=== PATIENT | female | born 1985 | race Caucasian/White ===

== ENCOUNTER → 2017-09-20 16:24 | Outpatient (CLI) | payer OTHER, SELFPAY ==
--- NOTE | 2017-09-20 16:33 | RAD_ITS ---
STUDY: X-RAY - ABDOMEN/PELVIS REASON FOR EXAM: Female, 31 years old. Constipation vomiting. TECHNIQUE: AP supine and upright views of the abdomen and pelvis. COMPARISON: None. FINDINGS: Normal visualized lung bases. There is an unremarkable bowel gas pattern. There is moderate to marked fecal retention. There is no demonstrated free abdominal air. The visualized liver, spleen and kidneys are grossly normal in size and morphology. Normal soft tissue structures. Normal visualized osseous structures. RAD/Abd Inc Decub and/or Erect IMPRESSION: Moderate to marked fecal retention, but no evidence for obstruction. Electronically Signed: Calderon De La Garza MD at 23:59 EDT , Service support ,
== END ==
PROVIDERS: Family Provider Internal Medicine; PCP Internal Medicine; Visit Provider Internal Medicine
DX: R10.2 Pelvic and perineal pain (principal)
CPT/HCPCS: 74019

== ENCOUNTER → 2017-12-13 15:52 | Outpatient (CLI) | payer OTHER, SELFPAY | PROVIDERS: Family Provider Internal Medicine; PCP Internal Medicine; Visit Provider Obstetrics & Gynecology | DX: N80.9 Endometriosis, unspecified (principal) | CPT/HCPCS: 76830; 76856 ==

== ENCOUNTER → 2018-01-24 15:56 | Outpatient (CLI) | payer OTHER, SELFPAY ==
--- NOTE | 2018-01-24 15:58 | US_ITS ---
STUDY: ULTRASOUND TRANSVAGINAL CLINICAL: Female, 32 years old. Ovarian cyst TECHNIQUE: Transvaginal COMPARISON: None. FINDINGS: Normal uterine size measuring 8.8 x 4.7 x 3.6 cm in maximal craniocaudal dimension. There are no myometrial masses. Normal endometrial thickness measuring 9 mm and appears hyperechoic. There are no endometrial masses, and there is no fluid in the endometrial cavity. Normal uterine cervix. Normal right ovary, measuring 5.3 x 4.3 x 3.9 cm. There is a 4.7 cm cyst. Normal left ovary, measuring 4.5 x 3.6 x 3.4 cm. There is a 3.5 cm cyst. There is mild free fluid in the pelvis. US/Pelvic (Non ) IMPRESSION: Bilateral ovarian cysts. Mild pelvic free fluid. Electronically Signed: Abrahan Chau DO at 23:56 EDT Tel [phone], Service support ,
--- NOTE | 2018-01-24 15:58 | US_ITS ---
STUDY: ULTRASOUND TRANSVAGINAL CLINICAL: Female, 32 years old. Ovarian cyst TECHNIQUE: Transvaginal COMPARISON: None. FINDINGS: Normal uterine size measuring 8.8 x 4.7 x 3.6 cm in maximal craniocaudal dimension. There are no myometrial masses. Normal endometrial thickness measuring 9 mm and appears hyperechoic. There are no endometrial masses, and there is no fluid in the endometrial cavity. Normal uterine cervix. Normal right ovary, measuring 5.3 x 4.3 x 3.9 cm. There is a 4.7 cm cyst. Normal left ovary, measuring 4.5 x 3.6 x 3.4 cm. There is a 3.5 cm cyst. There is mild free fluid in the pelvis. US/Transvaginal Non- IMPRESSION: Bilateral ovarian cysts. Mild pelvic free fluid. Electronically Signed: Abrahan Chau DO at 23:56 EDT Tel [phone], Service support ,
== END ==
PROVIDERS: Family Provider Internal Medicine; PCP Internal Medicine; Visit Provider Obstetrics & Gynecology
DX: N80.9 Endometriosis, unspecified (principal); R10.2 Pelvic and perineal pain
CPT/HCPCS: 76830; 76856; 93976

== ENCOUNTER → 2018-11-23 | Outpatient (CLI) | payer OTHER, SELFPAY ==
--- NOTE | 2018-11-23 10:10 | US_ITS ---
STUDY: ABDOMINAL ULTRASOUND - RIGHT UPPER QUADRANT REASON FOR VISIT: Female, 32 years old. Epigastric pain TECHNIQUE: Ultrasound evaluation of the right upper quadrant was performed with real-time and static mireles-scale imaging. TECHNICAL QUALITY: Adequate. COMPARISON: None. FINDINGS: Liver: The liver measures 14.5 cm. There is normal echogenicity of the liver. The bile ducts are within normal limits. There is hepatic color flow. The direction of portal flow is hepatopetal. There is no demonstrated mass lesion. Gallbladder: Normal distended gallbladder. The gallbladder wall measures 2.7 mm. There is a negative sonographic Sweet's sign. There is no pericholecystic fluid. There are no gallstones. Common Bile Duct (C.B.D.): The common bile duct measures 3.5 mm. Pancreas: Normal size of the head, body and tail of the pancreas. There is normal echogenicity of the pancreas. There is no demonstrated pancreatic mass or cyst. Right Kidney: Normal size of the right kidney. The right kidney measures 11.2 x 5.3 x 4.1 cm. Normal renal cortex. The right cortex measures 1.1 cm. There is no demonstrated renal mass or cyst. There is no right hydronephrosis. US/Abdomen Limited IMPRESSION: Normal right upper quadrant ultrasound examination. Electronically Signed: Bakari Davies MD at 13:39 EDT , Service support ,
== END | disposition home or self-care (01) ==
DX: R10.13 Epigastric pain (principal)
CPT/HCPCS: 76705

== ENCOUNTER → 2019-03-29 07:42 | Outpatient (CLI) | payer OTHER, SELFPAY ==
[2019-03-13 12:30] VITALS: BMI 26.7
--- NOTE | 2019-03-29 07:43 | ECHOD_ITS ---
Reason For Study: Arrhythmia Procedure This was a 2D Doppler, Color Flow transthoracic echocardiogram. Exam performed in department. Left Ventricle Normal LV size. The estimated ejection fraction is 65 %. Left ventricular systolic function is normal. No regional wall motion abnormalities noted. Right Ventricle Normal RV size. Normal systolic function. Atria Normal left atrium. Normal right atrium. Mitral Valve Normal mitral valve. Tricuspid Valve Normal tricuspid valve. Mild (1+) tricuspid valve insufficiency. Pulmonary artery systolic pressure is 20 mmHg. Aortic Valve Normal aortic valve. Trisinus/trileaflet aortic valve. Pulmonic Valve Normal pulmonic valve. Great Vessels Normal aortic root. The pulmonary artery is normal size. Normal inferior vena cava. Pericardium/Pleural No pericardial effusion. MMode/2D Measurements & Calculations LVIDd: 4.7 cm IVSd: 0.84 cm LA dimension: 3.6 cm LVIDs: 2.8 cm LVPWd: 1.1 cm FS: 41.3 % LAV(MOD-bp): 52.2 ml LA A4 area: 17.0 cm2 RA A4 area: 15.2 cm2 LAV(MOD-bp) Indexed: 27.8 ml/m2 LAV(MOD-sp2): 44.3 ml LAV(MOD-sp4): 50.6 ml Time Measurements MV dec time: 0.20 sec Doppler Measurements & Calculations MV E max thomas: 93.3 cm/sec Lat Peak E' Thomas: 14.1 cm/sec Med Peak E' Thomas: 11.1 cm/sec MV A max thomas: 70.1 cm/sec E/E' lat: 6.6 E/E' med: 8.4 MV E/A: 1.3 MV V2 max: 93.8 cm/sec MV P1/2t max thomas: 94.5 cm/sec Ao V2 max: 127.8 cm/sec MV max P.5 mmHg MV P1/2t: 79.9 msec Ao max P.5 mmHg MV V2 mean: 52.4 cm/sec MV dec slope: 346.4 cm/sec2 MV mean P.3 mmHg MVA(P1/2t): 2.8 cm2 MV V2 VTI: 24.9 cm LV V1 max: 115.8 cm/sec PA V2 max: 99.2 cm/sec TR max thomas: 208.0 cm/sec LV V1 max P.4 mmHg TR max P.3 mmHg Interpretation Summary Normal LV size. The estimated ejection fraction is 65 %. Left ventricular systolic function is normal. Structurally normal valves. Ordering Physician: Mickey Han Referring Physician: Mickey Han Performed By: Alexander Cantu RCS
== END ==
PROVIDERS: Referring Provider Internal Medicine Cardiovascular Disease; Visit Provider Internal Medicine Cardiovascular Disease
DX: R00.2 Palpitations (principal)
CPT/HCPCS: 93306

== ENCOUNTER → 2020-01-15 | Outpatient (CLI) | payer OTHER, SELFPAY ==
[2020-01-15 08:04] VITALS: BMI 26.7
[2020-01-20 20:47] LABS: HPV APTIMA, High Risk Negative (Negative)
== END | disposition home or self-care (01) ==
LOC: LABSPEC 15:26
PROVIDERS: Visit Provider Obstetrics & Gynecology
DX: Z12.4 Encounter for screening for malignant neoplasm of cervix (principal)
CPT/HCPCS: 87624; 88175; G0145

== ENCOUNTER → 2020-02-11 | Outpatient (CLI) | payer OTHER, SELFPAY ==
[2020-01-15 08:04] VITALS: BMI 26.7
--- NOTE | 2020-02-11 15:31 | US_ITS ---
STUDY: ULTRASOUND OF THE FEMALE PELVIS - COMPLETE REASON FOR EXAM: Female, 34 years old. HX ENDOMETRIOSIS F/U BILAT OVARIES LMP: 01/21/2020 TECHNIQUE: Transabdominal and Transvaginal TECHNICAL QUALITY: Adequate. COMPARISON: January 24, 2018 ultrasound pelvis FINDINGS: The uterus is anteverted and is in a midline position. The uterus measures 9.2 x 5.2 x 3.6 cm. Normal uterine cervix. The endometrium measures 1.3 mm in thickness, and is hyperechoic. There is no demonstrated endometrial mass. There is no demonstrated myometrial mass. I.U.D. - The patient does not have an I.U.D. The right ovary is visualized. The right ovary measures 8.2 x 6.6 x 4.9 cm. Right ovarian cyst measuring 5.7 x 5.6 x 4.5 cm. There are a few internal echoes. It appears to be mildly enlargement in comparison to prior study. There is a second adjacent cyst measuring 2.0 x 1.2 cm. This is not seen on the prior study. There is vascularity in a tic septum or parenchymal tissue between this cyst in the larger cyst. There is no visualized right adnexal mass or complex lesion. There is normal arterial and normal venous vascularity. The left ovary is visualized. The left ovary measures 6.4 x 4.5 x 3.3 cm. Is a left ovarian cyst measuring 3.8 x 3.6 x 3.0 cm. There is no visualized left adnexal mass or complex lesion. There is normal arterial and normal venous vascularity. There is no fluid in the cul-de-sac. The pre void volume of the bladder was 113.86 ml. Polycystic ovary disease: No. US/Pelvic (Non ) IMPRESSION: Large right ovarian cyst atypical by size. There are a few internal echoes. There is no evidence of significant internal vascularity. However, There is a second adjacent cyst measuring 2.0 x 1.2 cm. There is adjacent vascularity.No evidence of internal vascularity. This likely represents intervening ovarian parenchyma rather than a cystic septum. However given the size of this ovarian cyst slightly enlarged since prior study short-term interval follow-up is warranted. Left ovarian cyst. No evidence of significant endometrial thickening. Electronically Signed: Yadira Hu MD at 3:25 EDT Tel , Service support ,
--- NOTE | 2020-02-11 15:31 | US_ITS ---
STUDY: ULTRASOUND OF THE FEMALE PELVIS - COMPLETE REASON FOR EXAM: Female, 34 years old. HX ENDOMETRIOSIS F/U BILAT OVARIES LMP: 01/21/2020 TECHNIQUE: Transabdominal and Transvaginal TECHNICAL QUALITY: Adequate. COMPARISON: January 24, 2018 ultrasound pelvis FINDINGS: The uterus is anteverted and is in a midline position. The uterus measures 9.2 x 5.2 x 3.6 cm. Normal uterine cervix. The endometrium measures 1.3 mm in thickness, and is hyperechoic. There is no demonstrated endometrial mass. There is no demonstrated myometrial mass. I.U.D. - The patient does not have an I.U.D. The right ovary is visualized. The right ovary measures 8.2 x 6.6 x 4.9 cm. Right ovarian cyst measuring 5.7 x 5.6 x 4.5 cm. There are a few internal echoes. It appears to be mildly enlargement in comparison to prior study. There is a second adjacent cyst measuring 2.0 x 1.2 cm. This is not seen on the prior study. There is vascularity in a tic septum or parenchymal tissue between this cyst in the larger cyst. There is no visualized right adnexal mass or complex lesion. There is normal arterial and normal venous vascularity. The left ovary is visualized. The left ovary measures 6.4 x 4.5 x 3.3 cm. Is a left ovarian cyst measuring 3.8 x 3.6 x 3.0 cm. There is no visualized left adnexal mass or complex lesion. There is normal arterial and normal venous vascularity. There is no fluid in the cul-de-sac. The pre void volume of the bladder was 113.86 ml. Polycystic ovary disease: No. US/Transvaginal Non- IMPRESSION: Large right ovarian cyst atypical by size. There are a few internal echoes. There is no evidence of significant internal vascularity. However, There is a second adjacent cyst measuring 2.0 x 1.2 cm. There is adjacent vascularity.No evidence of internal vascularity. This likely represents intervening ovarian parenchyma rather than a cystic septum. However given the size of this ovarian cyst slightly enlarged since prior study short-term interval follow-up is warranted. Left ovarian cyst. No evidence of significant endometrial thickening. Electronically Signed: Yadira Hu MD at 3:25 EDT Tel , Service support ,
== END | disposition home or self-care (01) ==
LOC: US 15:31
PROVIDERS: PCP Internal Medicine; Referring Provider Obstetrics & Gynecology; Visit Provider Obstetrics & Gynecology
DX: N80.9 Endometriosis, unspecified (principal)
CPT/HCPCS: 76830; 76856

== ENCOUNTER → 2021-10-27 | Outpatient (CLI) | payer OTHER, SELFPAY ==
--- NOTE | 2021-10-27 06:56 | CT_ITS ---
STUDY: CT ABDOMEN AND PELVIS WITH CONTRAST REASON FOR EXAM: Female, 35 years old. Epigastric and right flank pain. RADIATION DOSAGE (If Supplied By Facility): CTDIvol = ( 16.95 ) mGy, DLP = ( 1053.75 ) mGycm TECHNIQUE: Transaxial images were obtained from the dome of the diaphragm to the symphysis pubis with oral contrast. Oral and amp; IV Readi-CAT and amp; 100mL Isovue-300 was administered. Sagittal and coronal images were reconstructed. Individualized dose optimization techniques were used for this CT. COMPARISON: None. FINDINGS: The visualized lung bases are unremarkable. The visualized portions of the heart are within normal limits. Normal liver. Normal gallbladder and extrahepatic biliary system. Normal spleen. Normal pancreas. Normal bilateral adrenal glands. Normal right kidney. Normal left kidney. Normal visualized stomach. Normal small intestine. Normal colon. The appendix is visualized and appears normal. Normal abdominal aorta. Normal inferior vena cava. Normal retroperitoneum. Normal urinary bladder. There is a 4.3 cm x 4 cm cyst in the left ovary. This also evidence of a 5.4 cm x 5 cm right ovarian cyst. Normal abdominal wall. Normal osseous structures. CT/Abdomen/Pelvis WITH Contrast IMPRESSION: Bilateral ovarian cysts. Electronically Signed: Kelby Ingram MD at 12:56 EDT ,
== END | disposition home or self-care (01) ==
PROVIDERS: PCP Internal Medicine; Visit Provider Obstetrics & Gynecology
DX: R10.9 Unspecified abdominal pain (principal); R10.2 Pelvic and perineal pain; N83.299 Other ovarian cyst, unspecified side; N80.9 Endometriosis, unspecified
CPT/HCPCS: 74177; Q9967

== ENCOUNTER 2022-01-04 08:54 | Day surgery (SDC) | payer OTHER, SELFPAY ==
[2022-01-04] VITALS (12 sets, daily range): BP systolic 108–144; BP diastolic 60–86; PULSE 46–94; RESP 14–18; TEMP 36.3–36.6; O2SAT 97–100; BMI 29.7
[2022-01-04] MEDS: Lactated Ringers 1,000 ML 15 ML IV (08:50)
[2022-01-04 09:27] LABS: Internal QC Validated? YES +Cl - CLEAR BKGD; Pregnancy, Urine Negative Negative
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
--- NOTE | 2022-01-04 10:27 | PCM.HP.BLA ---
History and Physical Intake Vital Signs ? 12/06/2212:43 12/06/2212:43 Height 5 ft 7 in 5 ft 7 in Weight: 192 lb 2 oz ? BMI 30.0 ? BP 100/66 ? Intake Visit Reasons:?Pre-op- ovarian cystectomies [place] [employer] Required: No Is patient in pain?: No Allergies doxycycline Allergy (Mild, Verified 12/06/21 13:42) nausea, vomitingPenicillins Allergy (Mild, Verified 12/06/21 13:42) Rashbananas Allergy (Mild, Uncoded 02/18/20 15:35) swelling and hives Medications ergocalciferol (vitamin D2) 1,250 mcg (50,000 unit) capsule 50,000 unit PO QWEEK 12/04/17 [History Confirmed 12/06/21] lorazepam 1 mg tablet (Ativan) 1 mg PO QHS PRN 12/04/17 [History Confirmed 12/06/21] ibuprofen 800 mg tablet 800 mg PO TID PRN pain #60 tabs 07/09/19 [Rx Confirmed 12/06/21] naproxen 500 mg tablet 500 mg PO BID-TID PRN pain #30 tabs 10/21/21 [Rx Confirmed 12/06/21] rimegepant 75 mg disintegrating tablet (Nurtec ODT) 75 mg PO ONCE PRN 10/21/21 [History Confirmed 12/06/21] Post menopausal: No Patient : No : [facility] Medical History?(Updated 12/06/21 @ 14:[address] Ana Maria Pickett MD) Anxiety Bilateral ovarian cysts Cyclic vomiting syndrome Endometriosis IBS (irritable bowel syndrome) Migraines Recurrent candidiasis of vagina Type 2 diabetes mellitus Vitamin D deficiency Surgical History? H/O colonoscopy H/O endoscopy S/P laparoscopic procedure S/P tonsillectomy and adenoidectomy Status post hysteroscopy Family History? Father Heart disease Diabetes COPD (chronic obstructive pulmonary disease)Grandmother Breast cancer Ovarian cancer CVA (cerebral vascular accident)Grandfather Diabetes CVA (cerebral vascular accident) Kidney disease Social History? alcohol intake:? never substance use type:? does not use caffeine:? Yes (occasionally) what type of physical activity do you participate in:? walking seatbelt use:? sometimes do you feel safe at home:? Yes additional social history:? 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 left cyst 4 cm right 6 cm. Pregancy History ? ? ? 0 ? Elective abortions ? Hx Para ? Spontaneous abortions ? Hx # Term Pregnancies ? Ectopic pregnancies ? Hx # Pregnancies ? Multiple births ? # of living children ? ROS Const Constitutional: Denies fatigue, fever(s), headache(s), increased appetite, poor appetite, weight gain or weight loss Cardio Card: Denies chest pain Resp Resp: Denies cough or dyspnea GI GI: Reports as per HPI, abdominal pain, nausea and vomiting; Denies constipation : Reports as per HPI; Denies difficulty voiding, dysuria, nipple discharge, urinary frequency, urinary incontinence, urinary hesitancy, urinary urgency, vaginal discharge, vaginal dryness, vaginal odor or vaginal pruritus Skin Skin/Breast: Denies change in hair, breast mass, breast pain, breast skin changes or nipple discharge Exam Const General: cooperative, healthy appearing, comfortable, no acute distress and well developed Nutritional Appearance: average body habitus Orientation: alert [facility] Head: normal to inspection and normocephalic Neck Neck: normal visual inspection and trachea midline Thyroid: thyroid normal Resp Effort & Inspection: normal respiratory effort GI Inspection: normal to inspection and non-distended Palpation: soft and no hepatosplenomegaly Skin General: no rashes or lesions noted Coding Level of Care Code No Charge Diagnoses Complex ovarian cyst? N83.299 Assessment and Plan Assessment and Plan (1) Complex ovarian cyst: ?Status:?Acute ?Comment: laparoscopic bilateral ovarian cystectomies, chromotubation. Plan After discussing the patient's diagnosis and treatment plan options, patient wishes to proceed with surgical management.? I have discussed with the patient the risks, benefits, and alternatives of the procedure which include but are not limited to risks of anesthesia, bleeding, infection, possible damage to bowel, bladder, or surrounding vasculature which could lead to additional surgery to evaluate any complications.? Patient agrees to procedure and wishes to proceed.? ACOG/uptodate references given for additional information regarding procedure.? UPDATE- I have seen the patient and performed any clinically relevant updates to the history and physical exam. Ana Maria Pickett MD
--- NOTE | 2022-01-04 10:35 | OP.PCM_ITS ---
Problems Associated Problem List Diagnoses (1) Endometriosis: (2) Complex ovarian cyst: Report of Operation Date of Procedure: 01/04/22 Pre-Operative Diagnosis: see problem list Post-Operative Diagnosis: enodmetriosis stage III disease, bilateral complex tubal masses. Surgery/Procedure Performed:: laparoscopic bilateral partial salpingectomies to removal bilateral complex tubal masses, chromotubation, adhesiolysis, ablation of endometriosis Description of Surgical Findings:: bilateral complete tubal blockage with complex paratubal masses bilaterally, endometriosis stage III disease, para ovarian adhesions, endometriosis implants, left sigmoid to pelvic side wall adhesions nl appearing gall bladder and upper abdomen Type of Anesthesia: General and Local Specimen's removed: ovarian cyst wall Drains: none Estimated Blood Loss (mL): 50 Fluids Replaced: crystalloid Description of Procedure: Patient was taken in the operating room and was placed under general anesthesia was prepped and draped in normal sterile fashion in the dorsal lithotomy position. Bladder was drained of clear urine and SCDs were on preoperatively. Uterus was sounded and a uterine manipulator was placed after dilating. Attention was then paid to the abdominal portion of the procedure and the umbilicus was elevated with towel clamps and injected with Marcaine and after a 12 mm incision was made and the Veress needle was entered into the abdomen confirmed to be intra-abdominal with a low opening pressure of less than 5 mmHg. Abdomen was insufflated with CO2 gas and a 12 mm optical trocar was placed under direct visualization. A 5 mm port was placed in the right and left lower quadrant ports under direct visualization. see Operative findings above for details. Chromotubation was performed by pushing on the fluid into the uterus through the uterine manipulator and no dye was spilt bilaterally. Sigmoid colon adhesions were taken down with the LigaSure device and bluntly. The fallopian tubes bilaterally, in order dissected out and the ovary was dissected off for pelvic sidewall and the fallopian tubes and with the bilateral complex cystic masses in the fallopian tubes which were noted to be completely nonfunctional and blocked of using the LigaSure device. Part of the fallopian tubes that were noted to be the most most portions of them were left intact bilaterally. The abnormal portions of the tubes were removed without complication after significant adhesiolysis was performed to free them up. They were placed into laparoscopic bags and removed through the umbilical port site. Endometriosis blebs were then ablated without complication. Liver and upper abdomen were visualized notably within normal limits and no other gross abnormalities were seen in the abdomen. All instruments removed from the abdomen after gas was desufflated. Varghese Roman was used to place a suture of 0 Vicryl through the 12 mm port site fascial incision. All port sites were closed with 3-0 Monocryl Steri's and op sites were applied. All instruments removed from the vagina and patient was awoken and taken recovery in stable condition. Grafts/Implants Used: none Complications none Admit VTE Documentation VTE Present on Admission: No VTE Mechan Device Prophylaxis: SCD's Multi Select Codes Urinary/Genital Urinary/Genital CPT Codes: 38167 Chromotubation, 01290 Laproscopic BS/O (bi lateral partial salpngectomies) and 78798 Laproscopic ablation endometriosis
--- NOTE | 2022-01-04 10:40 | FALL_PTH ---
PATIENT: NIDIA SHELBY LOC: [facility] – [place] U#:[id number] AGE/SX: 36/F ROOM: RE01/04/[address]: Dr. Ana Maria Pickett MD : [id number] BED: DIS: 01/04/2022 SPEC #: [id number] RECD: 01/04/22 14:20 STATUS: SKYLAR ANTIONE #: [id number] KIMANI: 01/04/22 10:[address]: Ana Maria Pickett DEPT: SURGICAL PATHOLOGY RECD BY: Vangie Mcdonough ENTERED: 01/05/22 08:19 SP TYPE: FALL TUBES OTHR DR: Dr. Olayinka Lopez MD Tissues: Fallopian tube Procedures: Surgery Specimen Level IV HEADER OPERATION: Laparoscopic chromotubation, partial salpingectomy, ablation PRE-OP DIAGNOSIS: Complex ovarian cyst, bilateral tubal masses, endometriosis TISSUE SUBMITTED: Bilateral tubal masses MICROSCOPIC DIAGNOSIS Bilateral tubal masses, bilateral salpingectomy: Bilateral fallopian tubes with cystic changes and chronic inflammation. See comment. SJ:rg 01/06/2022 COMMENT A small amount of ovarian tissue is also noted adjacent to the bilateral fallopian tube. Clinical correlation and appropriate follow up are necessary. MICROSCOPIC DESCRIPTION Slides are reviewed. GROSS DESCRIPTION Received in fixative is one container labeled with the patient's name and designated bilateral tubal masses. The specimen consists of two cystic masses measuring 4.5 x 4 x 2 cm and 6.5 x 3 x 1.5 cm. The larger piece shows focal area resembling fallopian tube measuring 3.5 cm in length and 0.5 cm in diameter. The fimbrial end is not identified. Both pieces are inked black. No papillations are identified in both pieces. Both pieces are not identified as right or left. Sectioning of the larger piece reveals a cyst with smooth lining adjacent to it measuring 4 cm in greatest dimension. Sectioning of the smaller piece also does not reveal any identified fallopian tube lumen and reveals a thin-walled cyst measuring 3.5 cm in greatest dimension. Greenhouse Worker sections are submitted in eight cassettes as follows: 1-4 - larger piece of tissue, 5-8 - smaller piece of tissue. / FLORIN:adelina 01/05/2022 TC:5 CPT: 33716 x2
[2022-01-04] MEDS: Bupivacaine 0.25% 30 ML Vial (11:17)
--- NOTE | 2022-01-04 12:25 | DCINST_ITS ---
Discharge Instructions Diet Discharge Diet: No restrictions Activity Discharge Activity: Return to Normal Activity, May Drive (when pain free) and May Shower May resume sexual activity in: 1 week Weight Bearing Status: Full weight bearing Lifting Restrictions: 30 lbs for 2 weeks Dressing / Incision Call your doctor if your incision/area has: Continuous Slow Oozing, Sudden Increased Bleeding, Increased Pain/ Swelling, Increased Redness and Foul Smelling Discharge Call your doctor if you observe: Fever of 101 or Higher, Using more than 1 pad per hour, Shortness of breath, Chest pain and Uncontrolled pain Suture Line Care: Avoid Pulling/Pushing and Avoid Pinching/Bending Remove Dressing in: 1 week (if present) Cleanse incision/area with: Soap & Water and Keep Dressing Clean & Dry Follow Up Care Please Follow Up With: Ana Maria Pickett MD When: Call to make an appointment with your doctor for a postop visit in 2 weeks Test Results: Test results from this visit will be discussed in further detail at your follow- up appointment, if applicable. Discharge Plan Admission Primary Reason for Your Visit: laparoscopic bilateral removal of tubal cystic masses, ablation endometrios Attending Provider: Ana Maria Pickett Primary Care Provider: Olayinka Lopez Discharge Orders/Prescriptions Prescriptions: New clindamycin HCl 300 mg capsule 300 mg PO Q8H 7 Days Qty: 21 0RF oxycodone-acetaminophen [Percocet] 5-325 mg tablet 1 tab PO Q6H PRN (Reason: pain) 7 Days Qty: 20 0RF naproxen [naproxen] 500 mg tablet 500 mg PO BID PRN PRN (Reason: Pain) Qty: 30 1RF No Action ergocalciferol (vitamin D2) 50,000 unit capsule 50,000 unit PO MO lorazepam [Ativan] 1 mg tablet 1 mg PO QHS PRN (Reason: Sleep) Nurtec ODT 75 mg tablet,disintegrating 75 mg PO PRN PRN (Reason: MIGRAINES) Rx Instructions: as a single dose naproxen 500 mg tablet 500 mg PO BID-TID PRN (Reason: pain) Qty: 30 2RF Rx Instructions: administer with food or milk Probiotic 3 billion cell Capsule 3,000 mmu cells PO DAILY Rx Instructions: administer with a meal ondansetron HCl [Zofran] 4 mg Tablet 4 mg PO Q6H PRN (Reason: Nausea) ibuprofen 800 mg tablet 800 mg PO TID PRN (Reason: pain) Qty: 60 1RF Referrals / Follow Up: Olayinka Lopez MD [Primary Care Provider] - Disposition Disposition (needs filled in before D/C Order can be placed): Home, Self Care
== END 2022-01-04 16:49 | disposition home or self-care (01) ==
LOC: SDC 08:56 → AC 08:57
PROVIDERS: PCP Internal Medicine; Referring Provider Obstetrics & Gynecology; Visit Provider Obstetrics & Gynecology
PROC: (CPT 58662; principal; 2022-01-04 10:25)
DX: N83.8 Other noninflammatory disorders of ovary, fallopian tube and broad ligament (principal); E11.9 Type 2 diabetes mellitus without complications; N83.209 Unspecified ovarian cyst, unspecified side; N83.9 Noninflammatory disorder of ovary, fallopian tube and broad ligament, unspecified; F41.9 Anxiety disorder, unspecified; E55.9 Vitamin D deficiency, unspecified; Z79.899 Other long term (current) drug therapy
CPT/HCPCS: 58662; 58350; 58661; 00840; 81025; 86850; 86900; 86901; 88305; J7120; J2405; Q9968

== ENCOUNTER → 2024-03-04 | Outpatient (CLI) | payer OTHER, SELFPAY ==
[2024-03-12 14:09] LABS: HPV APTIMA, High Risk Negative (Negative)
== END | disposition home or self-care (01) ==
LOC: LABSPEC 17:01
PROVIDERS: PCP Internal Medicine; Referring Provider Advanced Practice Midwife; Visit Provider Advanced Practice Midwife
DX: Z12.4 Encounter for screening for malignant neoplasm of cervix (principal)
CPT/HCPCS: 87624; 88175; G0145